=== PATIENT | male | born 1970 | race Hispanic/Latino ===

== ENCOUNTER 2020-07-31 21:03 | Emergency (ER) | payer SELFPAY ==
[2020-07-31] MEDS ORDERED: Boostrix 0.5 ML (Tdap) VIAL ONE (21:25)
[2020-07-31] MEDS ORDERED: Lidocaine 1% PF 5 ML VIAL ONE (21:56)
--- NOTE | 2020-07-31 22:12 | RAD ---
RADIOGRAPH LEFT HAND [id number]: DATE: 07/31/2020 HISTORY: 49-year-old male status post laceration injury of left hand FINDINGS: There is no evidence of fracture or dislocation. There is no evidence of periostitis, permeative lesi on, osteolytic lesion, or osteoblastic lesion. The joint spaces are maintained without erosions or significant osteophytes. No radiopaque foreign body or subcutaneous emphysema IMPRESSION: Normal
[2020-08-01] MEDS ORDERED: Bacitracin 1 PK ONE
== END 2020-08-01 00:04 | disposition home or self-care (01) ==
LOC: ERS 21:03
DX: S61.411A Laceration without foreign body of right hand, initial encounter (principal); I10 Essential (primary) hypertension; Z79.899 Other long term (current) drug therapy; W45.0XXA Nail entering through skin, initial encounter
CPT/HCPCS: 12002; 90471; 90715